=== PATIENT | male | born 1990 | race Caucasian/White ===

== ENCOUNTER 2024-10-02 12:45 | Emergency (ER) | payer OTHER, SELFPAY ==
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
--- OUTSIDE RECORDS SUMMARY | 2024-10-02 12:47 | XMS_ITS | Clinical Summary ---
Author Organization [facility] Address [address] [place] [address] Care Team Providers Care Student Activities Director Name Role Phone Unavailable Primary Care Provider Unavailabl e Source Comments [facility],non-owned Affiliates and Associated Physician Practices is amultiple site organization consisting of ambulatory clinics and hospital sitesin [place], [place], [place] and [place]. This disclosure is being madepursuant to the Care Everywhere program and may not contain all information available regarding this patient. Last updated 17.[facility] Allergies Active Allergy Reactions Criticality Noted Date Comments Contrast-Iodinated Agents For Ct/Other Urticaria Medium 11/06/2017 Cyclobenzaprine Unknown 02/15/2020 Other-See Past Updates Urticaria 09/09/2013 Medications * Be aware that medications may not be up to date on this document. Alwaysverify current medications with the patient. acetaminophen (TYLENOL) 500 MG capsule Take 1 capsule by mouth every 4 hours as needed for Fever or Pain 40 capsule 8 Active cyclobenzaprine (FLEXERIL) 10 MG tablet Take 1 tablet by mouth 3 times daily as needed for Muscle Spasms 21 tablet 8 Active acetaminophen (TYLENOL) 500 MG capsule Take 1 capsule by mouth every 4 hours as needed for Fever or Pain 120 capsule 1 0 Active ibuprofen (MOTRIN) 600 MG tablet Take 1 tablet by mouth every 6 hours as needed for Pain 120 tablet 1 0 Active gabapentin (NEURONTIN) 100 MG capsule Take 3 capsules by mouth 3 times daily 120 capsule 1 0 Active lidocaine (LIDODERM) 5 % patch Apply 1 patch to skin once daily 10 patch 2 0 Active meloxicam (MOBIC) 15 MG tablet meloxicam 15 mg tablet TAKE 1 TABLET BY MOUTH EVERY DAY AFTER A MEAL. 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 Gender Identity Not on file Sexual Orientation Not on file Last Filed Vital Signs Vital Sign Reading Time Taken Comments Blood Pressure 172/105 10/14/2023 12:41 PM CDT Pulse 67 10/14/2023 12:41 PM CDT Temperature 37 C (98.6 F) 10/14/2023 12:41 PM CDT Respiratory Rate 16 10/14/2023 12:41 PM CDT Oxygen Saturation 97% 10/14/2023 12:41 PM CDT Inhaled Oxygen Concentration - - Weight 83.9 kg (185 lb) 10/14/2023 8:49 AM CDT Height 175.3 cm (5' 9) 10/14/2023 8:49 AM CDT Body Mass Index 27.32 10/14/2023 8:49 AM CDT Plan of Treatment Health Maintenance Due Date Last Done Comments HIV SCREENING 01/30/2004 HEPATITIS C SCREENING 01/25/2007 DTAP/TDAP/TD VACCINES (1 - Tdap) 01/30/2008 HEPATITIS B VACCINE (1 of 3 - 19+ 3-dose series) 01/30/2008 PNEUMOCOCCAL VACCINE (1 of 2 - PCV) 01/30/2008 HPV VACCINE (1 - 3-dose SCDM series) 01/30/2016 COVID-19 VACCINE (1 - 2023-2 5 season) 2023 DEPRESSION SCREENING 02/25/2024 INFLUENZA VACCINE (#1) 2024 ZOSTER VACCINE (1 of 2) 2039 HIB VACCINE Aged Out No longer eligi ble based on patient's age to complete this topic MENINGOCOCCAL (Group B) VACC INE SHARED DECISION-MAKING Aged Out No longer eligibl e based on patient's age to complete this topic MENINGOCOCCAL GROUPS A/C/Y/W VACCINE Aged Out No longer eligible b ased on patient's age to complete this topic Insurance [place] [employer] [facility] [place] [facility] [employer] Advance Directives * Full Code (Latest Code Status on File) Date Activated Date Inactivated Comments 05/29/2018 4:02 AM 05/29/2018 1:29 PM
[2024-10-02 12:48] VITALS: BP 161/107; PULSE 103; RESP 16; TEMP 36.6; O2SAT 98
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
--- OUTSIDE RECORDS SUMMARY | 2024-10-02 13:43 | XMS_ITS | Clinical Summary ---
Author Organization [facility] Address [address] [place] [address] Care Team Providers Care Entry Level Marketing Assistant Name Role Phone Unavailable Primary Care Provider Unavailabl e Source Comments [facility],non-owned Affiliates and Associated Physician Practices is amultiple site organization consisting of ambulatory clinics and hospital sitesin [place], [place], [place] and [place]. This disclosure is being madepursuant to the Care Everywhere program and may not contain all information available regarding this patient. 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
[2024-10-02] MEDS: IBUPROFEN 400 MG TABLET 800 MG PO (14:26)
[2024-10-02] MEDS: HYDROcodone/acetaminophen (*CRX) 5-325 MG TABLET 1 TAB PO (14:26)
[2024-10-02 15:01] VITALS: BP 155/82; PULSE 97; RESP 18; O2SAT 99
== END 2024-10-02 15:38 | disposition home or self-care (01) ==
PROVIDERS: Emergency Provider Emergency Medicine
DX: S62.305A Unspecified fracture of fourth metacarpal bone, left hand, initial encounter for closed fracture (principal); Y09 Assault by unspecified means
CPT/HCPCS: 29125; 73130; 99284; A4565; A9270

== ENCOUNTER 2024-10-19 10:56 | Outpatient (CLI) | payer OTHER, SELFPAY ==
--- NOTE | ~2024-10-19 | XR_ITS ---
EXAMINATION: XR hand LT min 3V DATE: 10/19/2024 11:26 INDICATION: Unspecified fracture fourth metacarpal bone TECHNIQUE: 4 images of the left hand were obtained.. COMPARISON: 10/02/2024 FINDINGS: Grossly stable nondisplaced transverse fracture of the middle third of the fourth metacarpal. Alignment is near-anatomic. No new fracture. No dislocation. IMPRESSION: 1. Grossly stable nondisplaced fracture of the left fourth metacarpal. Alignment is near-anatomic. Reviewed, dictated and finalized at location Q. IMPRESSION: 1. Grossly stable nondisplaced fracture of the left fourth metacarpal. Alignmen t is near-anatomic.
--- OUTSIDE RECORDS SUMMARY | 2024-10-19 11:32 | XMS_ITS | Clinical Summary ---
Author Organization [facility] [employer] Address [address] [address] Care Team Providers Care Sales Representative Gas Service Name Role Phone Unavailable Primary Care Provider Unavailabl e Source Comments [facility],non-owned Affiliates and Associated Physician Practices is amultiple site organization consisting of ambulatory clinics and hospital sitesin [place], [place], [place] and [place]. This disclosure is being madepursuant to the Care Everywhere program and may not contain all information available regarding this patient. 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
== END 2024-10-19 10:57 | disposition home or self-care (01) ==
PROVIDERS: Visit Provider Plastic Surgery
DX: S62.305D Unspecified fracture of fourth metacarpal bone, left hand, subsequent encounter for fracture with routine healing (principal); X58.XXXD Exposure to other specified factors, subsequent encounter
CPT/HCPCS: 73130

== ENCOUNTER 2024-11-09 10:05 | Outpatient (CLI) | payer OTHER, SELFPAY ==
--- NOTE | ~2024-11-09 | XR_ITS ---
X-rays left hand Indication: Fracture fourth metacarpal, S 62.305A Comparison: 10/19/2024 Technique: 3 views left hand Findings/Impression: 1. Mild bridging callus formation along palmar surface of nondisplaced transverse fracture fourth metacarpal mid shaft. 2. Fracture line remains visible. 3. No other acute abnormality. Reviewed, dictated and finalized at location R.
--- OUTSIDE RECORDS SUMMARY | 2024-11-09 11:44 | XMS_ITS | Clinical Summary ---
Author Organization [facility] [employer] Address [address] [place] [place] [address] Care Team Providers Care Container Coordinator Name Role Phone Unavailable Primary Care Provider Unavailabl e Source Comments [facility] [employer],non-owned Affiliates and Associated Physician Practices is amultiple site organization consisting of ambulatory clinics and hospital sitesin [place], [place], [place] and [place]. This disclosure is being madepursuant to the Care Everywhere program and may not contain all information available regarding this patient. 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
== END 2024-11-09 10:06 | disposition home or self-care (01) ==
PROVIDERS: Visit Provider Plastic Surgery
DX: S62.305A Unspecified fracture of fourth metacarpal bone, left hand, initial encounter for closed fracture (principal); X58.XXXA Exposure to other specified factors, initial encounter
CPT/HCPCS: 73130